=== PATIENT | female | born 1995 | race Caucasian/White ===

== ENCOUNTER → 2023-04-24 | Outpatient (CLI) | payer OTHER | END | disposition home or self-care (01) | LOC: LAB SHORT 18:22 → LAB 18:22 | DX: O09.892 Supervision of other high risk pregnancies, second trimester (principal) | CPT/HCPCS: 87081; 87150 ==

== ENCOUNTER 2023-05-13 19:02 | Inpatient (IN) | payer OTHER ==
[~2023-05-13] VITALS: Ht 165.1 cm; Wt 125.9 kg
[2023-05-13] VITALS (7 sets, daily range): BP systolic 132–146; BP diastolic 79–92
[2023-05-13] MEDS ORDERED: Methylergonovine Maleate 0.2MG / ML 1ML Amp IM SCH (19:40)
[2023-05-13] MEDS ORDERED: Oxytocin 10 Unit / ML Vial IM SCH (19:40)
[2023-05-13] MEDS ORDERED: Lidocaine HCl 1% 30 ML SDV XX SCH (19:40)
[2023-05-13] MEDS ORDERED: Bupivacaine HCl 2.5 MG/ML 10ML P/F Injection XX SCH (19:40)
[2023-05-13] MEDS ORDERED: Bupivacaine 0.5% HCl 5 MG/ML 30MLVIAL XX SCH (19:40)
[2023-05-13] MEDS ORDERED: Misoprostol 200 MCG Tab PR SCH (19:40)
[2023-05-13] MEDS ORDERED: LR Oxytocin 20 Units 1,000 ML IV SCH (19:40)
[2023-05-13] MEDS ORDERED: Castor Oil 59.146 ML BTL TOP SCH (19:40)
[2023-05-13] MEDS ORDERED: Lactated Ringer's 1,000 ML IV PRN (19:40)
[2023-05-13] MEDS ORDERED: Zolpidem Tartrate 5 MG Tab PO PRN (19:45)
[2023-05-13] MEDS ORDERED: Calcium Carbonate 500 MG Tab Chew PO PRN (19:45)
[2023-05-13] MEDS ORDERED: Misoprostol 25 MCG Tab VAG PRN (19:45)
[2023-05-13] MEDS ORDERED: Lactated Ringer's 1,000 ML IV SCH ×2 (19:45→22:25)
[2023-05-13] MEDS ORDERED: Acetaminophen 325 MG TABLET PO PRN (19:45)
[2023-05-13] MEDS ORDERED: ONDA4 PO (19:50)
[2023-05-13] MEDS ORDERED: PRENATAL TABLE1 EAC2 PO (19:52)
[2023-05-13] MEDS ORDERED: ASPIR 8181 M1 PO (19:52)
[2023-05-13 19:58] LABS: BASOPHILS ABSOLUTE AUTO 0.03 K/mm3 (0.00-0.23); BASOPHILS PERCENT AUTO 0 % (0-2); EOSINOPHILS ABSOLUTE AUTO 0.04 K/mm3 (0.00-0.68); EOSINOPHILS PERCENT AUTO 0 % (0-6); Hematocrit 35.5 % (33.0-51.0); Hemoglobin 12.1 g/dL (11.5-16.0); IMMATURE GRAN ABSOLUTE AUTO 0.03 K/mm3 (0.00-0.10); IMMATURE GRAN PERCENT AUTO 0 % (0-1); LYMPHOCYTES ABSOLUTE AUTO 2.17 K/mm3 (0.84-5.20); LYMPHOCYTES PERCENT AUTO 23 % (21-46); MONOCYTES ABSOLUTE AUTO 0.52 K/mm3 (0.16-1.47); MONOCYTES PERCENT AUTO 6 % (4-13); Mean Corpuscular HGB Conc 34.1 g/dL (31.5-36.5); Mean Corpuscular Volume 91 fL (80-100); Mean Platelet Volume 10.4 fL (9.1-12.4); NEUTROPHILS ABSOLUTE AUTO 6.53 K/mm3 (1.96-9.15); NEUTROPHILS PERCENT AUTO 70 % (41-73); Platelet Count 216 K/mm3 (150-400); RDW Coefficient Variation 13.2 % (11.7-14.2); RDW Standard Deviation 43.6 fL (35.1-46.3); White Blood Cell Count 9.32 K/mm3 (4.00-11.30)
[2023-05-13] MEDS ORDERED: ePHEDrine Sulfate 50 MG/ML 1ML Injection XX PRN (22:25)
[2023-05-13] MEDS ORDERED: FentaNYL 2mcg/ml-Bup 0.1% Epd 250 ML EPI PRN (22:25)
[2023-05-14] VITALS (38 sets, daily range): BP systolic 103–163; BP diastolic 56–101
[2023-05-14] MEDS ORDERED: Naloxone HCl 0.4MG / ML 1ML Vial IV PRN (12:00)
[2023-05-14] MEDS ORDERED: Ondansetron HCl 2 MG / ML 2ML Vial IV PRN (12:00)
[2023-05-14] MEDS ORDERED: DiphenhydrAMINE HCl 50 MG/ML 1ML Vial IV PRN (12:05)
[2023-05-14] MEDS ORDERED: Metoclopramide HCl 5MG / ML 2ML Vial IV PRN (12:05)
[2023-05-14] MEDS ORDERED: ePHEDrine Sulfate 50 MG/ML 1ML Injection IV PRN (12:05)
[2023-05-14] MEDS ORDERED: Acetaminophen 500 MG Tab PO PRN (17:10)
[2023-05-14] MEDS ORDERED: FLU VACC QS2023-24(6MOS UP)/PF 60 MCG/0.5 ML SYRINGE IM SCH (17:10)
[2023-05-14] MEDS ORDERED: Methylergonovine Maleate 0.2MG / ML 1ML Amp IM PRN (17:10)
[2023-05-14] MEDS ORDERED: Oxytocin 10 Unit / ML Vial IM ONE (17:10)
[2023-05-14] MEDS ORDERED: Lactated Ringer's 1,000 ML IV SCH (17:10)
[2023-05-14] MEDS ORDERED: Misoprostol 200 MCG Tab PR PRN (17:10)
[2023-05-14] MEDS ORDERED: Benzocaine Topical Anesthetic Spray 60GM TOP PRN (17:10)
[2023-05-14] MEDS ORDERED: Ibuprofen 400 MG Tab PO PRN (17:15)
[2023-05-14] MEDS ORDERED: LR Oxytocin 20 Units 1,000 ML IV PRN (17:15)
[2023-05-14] MEDS ORDERED: Witch Hazel/Glycerin PADS TOP PRN (17:15)
[2023-05-14] MEDS ORDERED: Ketorolac Tromethamine 30mg Vial IV ONE (18:00)
[2023-05-14] MEDS ORDERED: Ketorolac Tromethamine 30mg Vial IV PRN (18:00)
[2023-05-15 00:48] VITALS: BP 126/75
[2023-05-15 03:23] VITALS: BP 127/79
[2023-05-15 08:05] VITALS: BP 127/78
--- NOTE | 2023-05-15 08:34 | NUR ---
LINENS PASSED, PT WILL SHOWER LATER
[2023-05-15] MEDS ORDERED: Prenatal Vit/FE Fumarate/FA 1 Tab PO SCH (09:00)
[2023-05-15 13:00] VITALS: BP 134/92
--- NOTE | 2023-05-15 13:10 | NUR ---
PT C/O HER CHEST FEELING TIGHT WHEN STANDING UP, BIOX WHILE SITTING IN BED 97-98% LUNGS SOUND CLEAR, NO HX OF ASTHMA, DR GUZMAN UPDATED
[2023-05-15] MEDS ORDERED: Docusate Sodium 100 MG Cap PO ONE (13:50)
--- NOTE | 2023-05-15 16:03 | NUR ---
CELENA LUTZ RN
[2023-05-15 17:31] VITALS: BP 143/88
[2023-05-15 17:32] VITALS: BP 136/87
--- NOTE | 2023-05-15 18:46 | NUR ---
DISCHARGE INSTRUCTIONS DISCUSSED WITH PT AND FOB. ALL QUESTIONS ANSWERED. BOTH VERBALIZED UNDERSTANDING. FOLLOW UP APPT SCHEDULED FOR TOMORROW AT 11AM. NB STRAPPED INTO CARSEAT APPROPRIATELY. MOM AMBULATED OUT OF ROOM TO VEHICLE WITHOUT COMPLICATION.
== END 2023-05-15 18:30 | disposition home or self-care (01) | DRG 807 ==
LOC: OBS 19:02 → BC 19:07 → OBS 19:28 → BC 19:29
PROVIDERS: ADMIT Family Medicine
PROC: 10E0XZZ Delivery of Products of Conception, External Approach (ICD-10-PCS; principal; 2023-05-14)
PROC: 10907ZC Drainage of Amniotic Fluid, Therapeutic from Products of Conception, Via Natural or Artificial Opening (ICD-10-PCS; 2023-05-14)
PROC: 3E0R3BZ Introduction of Anesthetic Agent into Spinal Canal, Percutaneous Approach (ICD-10-PCS; 2023-05-14)
PROC: 3E0R33Z Introduction of Anti-inflammatory into Spinal Canal, Percutaneous Approach (ICD-10-PCS; 2023-05-14)
DX: O14.94 Unspecified pre-eclampsia, complicating childbirth (principal); Z37.0 Single live birth; O99.214 Obesity complicating childbirth; Z3A.39 39 weeks gestation of pregnancy; O99.344 Other mental disorders complicating childbirth; F32.A Depression, unspecified; O69.81X0 Labor and delivery complicated by cord around neck, without compression, not applicable or unspecified; Z79.82 Long term (current) use of aspirin; Z79.899 Other long term (current) drug therapy
CPT/HCPCS: 36415; 51702; 85025; 86850; 86900; 86901; 86923; A9270; J1885; J2590; J7120

== ENCOUNTER 2023-06-30 11:25 | Day surgery (SDC) | payer OTHER ==
[~2023-06-30] VITALS: Ht 165.1 cm; Wt 114.0 kg
[2023-06-30] VITALS (15 sets, daily range): BP systolic 120–148; BP diastolic 73–99
[~2023-06-30 11:25] MED LIST: ASPIR 8181 M1 PO; ONDA4 PO; PRENATAL TABLE1 EAC2 PO; SERT50 PO
[2023-06-30] MEDS ORDERED: Lactated Ringer's 1,000 ML IV SCH (12:05)
--- NOTE | 2023-06-30 12:13 | NUR ---
Ambulatory in Day Surgery History, Chart, Medications and Allergies reviewed before start of procedure. Pre-Op teaching done. Pt verbalizes understanding. Patient States Post-Procedure ride home has been arranged.
[2023-06-30] MEDS ORDERED: Bupivacaine 0.5% HCl 5 MG/ML 30MLVIAL ONE (12:44)
[2023-06-30] MEDS ORDERED: Midazolam HCl 1MG / ML 2ML Vial IV SCH (12:50)
[2023-06-30] MEDS ORDERED: Scopolamine Hydrobromide Patch TOP SCH (12:50)
[2023-06-30] MEDS ORDERED: Scopolamine Hydrobromide Patch ONE (12:52)
[2023-06-30] MEDS ORDERED: Midazolam HCl 1MG / ML 2ML Vial ONE (12:52)
[2023-06-30] MEDS ORDERED: propofoL 20 ML IV ONE (13:04)
[2023-06-30] MEDS ORDERED: FentaNYL Citrate 50 MCG/ML 2 ML Injection ONE (13:04)
[2023-06-30] MEDS ORDERED: Rocuronium Bromide 10 MG/ML 5ML Injection IV ONE (13:06)
[2023-06-30] MEDS ORDERED: Dexamethasone Sod Phos 10 MG/ML 1ML VIAL ONE (13:11)
[2023-06-30] MEDS ORDERED: Ondansetron HCl 2 MG / ML 2ML Vial ONE (13:11)
[2023-06-30] MEDS ORDERED: Ketorolac Tromethamine 30mg Vial ONE (13:11)
[2023-06-30] MEDS ORDERED: Albuterol 2.5 MG/3 ML VIAL INH PRN (13:20)
[2023-06-30] MEDS ORDERED: HYDROmorphone HCl/Pf 1MG SYR IV PRN (13:25)
[2023-06-30] MEDS ORDERED: FentaNYL Citrate 50 MCG/ML 2 ML Injection IV PRN (13:25)
[2023-06-30] MEDS ORDERED: Droperidol 5 mg/2 ml Vial IV PRN (13:25)
[2023-06-30] MEDS ORDERED: Sugammadex Sodium 200 MG/2ML SDV (100 MG/ML) ONE (13:41)
[2023-06-30] MEDS ORDERED: Droperidol 5 mg/2 ml Vial ONE (14:16)
[2023-06-30] MEDS ORDERED: HYDROcodone 5-APAP 325 TAB PO PRN (14:25)
[2023-06-30] MEDS ORDERED: Ibuprofen 400 MG Tab PO ONE (14:25)
[2023-06-30] MEDS ORDERED: OxyCODONE 5 mg/Acetamin 325 mg TABLET PO PRN (14:30)
--- NOTE | 2023-06-30 14:51 | NUR ---
1435 TO STEP,AWAKE. 3 SMALL ABDOMINAL INCISION DRY AND INTACT W/ SKIN GLUE. SCAN VAG DRAINAGE ON ALANNAH PAD. MINIMAL ABDOMINAL PAIN AND SOME URGE TO URINATE W/SLIGHT IRRITAION FROM S/P CATH
--- NOTE | 2023-06-30 15:19 | NUR ---
1515 AMBULATE TO BR STEADY ON FEET, UNABLE TO VOID. CONYINUED IV FLUIDS ENC MORE PO FLUIDS, PT BACK IN BED RESTING
--- NOTE | 2023-06-30 15:58 | NUR ---
CARE TURNED OVER TO GERTRUDIS [place]. PT CONTINUES TO SLEEP. IV FLUIDS RUNNING. PER DR CUEVAS REC GIVING THE LITER OF FLUIDS. AT BEDSIDE
--- NOTE | 2023-06-30 16:38 | NUR ---
1620 AMBULATE TO BR. STEADY ON FEET. VOIDED WITHOUT DIFFICULTY. DC INSTRUCTS GIVEN PT AND VERBALIZED UNDERSTANDING 1630 DC HOME. TO CAR VIA W/C CARE TURNED OVER TO
== END 2023-06-30 16:30 | disposition home or self-care (01) ==
LOC: ORSCMMR 11:25 → ORD 12:30 → ORSCMMR 16:30
PROVIDERS: Obstetrics & Gynecology
PROC: 0UB74ZZ Excision of Bilateral Fallopian Tubes, Percutaneous Endoscopic Approach (ICD-10-PCS; principal; 2023-06-30 12:30)
DX: Z30.2 Encounter for sterilization (principal); F32.A Depression, unspecified; E66.9 Obesity, unspecified; Z68.41 Body mass index [BMI] 40.0-44.9, adult; Z79.899 Other long term (current) drug therapy
CPT/HCPCS: 88302; A9270; J1100; J1790; J1885; J2250; J2405; J2704; J3010; J7120